=== PATIENT | male | born 1975 | race Caucasian/White ===

== ENCOUNTER 2024-06-29 13:24 | Emergency (ER) | payer MEDICAID ==
[~2024-06-29] VITALS: Ht 188 cm; Wt 76.3 kg
[2024-06-29 13:29] VITALS: BP 119/37; PULSE 70; RESP 16; TEMP 98; O2SAT 96
== END 2024-06-29 14:13 | disposition home or self-care (01) ==
LOC: ER 13:25
DX: Z00.8 Encounter for other general examination (principal)
CPT/HCPCS: 99281